=== PATIENT | male | born 1955 | race Caucasian/White ===

== ENCOUNTER 2024-05-14 14:23 | Inpatient (IN) | payer MEDICARE, OTHER ==
[~2024-05-14] VITALS: Ht 175.3 cm; Wt 101.9 kg
[2024-05-14 15:01] LABS: BASOPHILS ABSOLUTE AUTO 0.02 K/mm3 (0.00-0.23); BASOPHILS PERCENT AUTO 0 % (0-2); EOSINOPHILS ABSOLUTE AUTO 0.04 K/mm3 (0.00-0.68); EOSINOPHILS PERCENT AUTO 1 % (0-6); Hematocrit 34.3 % (37.0-53.0); Hemoglobin 12.3 g/dL (13.5-17.5); IMMATURE GRAN ABSOLUTE AUTO 0.02 K/mm3 (0.00-0.10); IMMATURE GRAN PERCENT AUTO 0 % (0-1); LYMPHOCYTES ABSOLUTE AUTO 1.12 K/mm3 (0.84-5.20); LYMPHOCYTES PERCENT AUTO 20 % (21-46); MONOCYTES ABSOLUTE AUTO 0.54 K/mm3 (0.16-1.47); MONOCYTES PERCENT AUTO 10 % (4-13); Mean Corpuscular HGB 31.7 pg (26.0-34.0); Mean Corpuscular HGB Conc 35.9 g/dL (31.5-36.5); Mean Corpuscular Volume 88 fL (80-100); Mean Platelet Volume 11.9 fL (9.1-12.4); NEUTROPHILS ABSOLUTE AUTO 3.84 K/mm3 (1.96-9.15); NEUTROPHILS PERCENT AUTO 69 % (41-73); Platelet Count 133 K/mm3 (150-400); RDW Coefficient Variation 12.5 % (11.7-14.2); RDW Standard Deviation 40.6 fL (35.1-46.3); Red Blood Cell Count 3.88 M/mm3 (4.30-5.90); White Blood Cell Count 5.58 K/mm3 (4.00-11.30)
[2024-05-14 15:20] LABS: Albumin, Blood 4.2 g/dL (3.4-5.0); Albumin/Globulin Ratio 1.1 (0.8-1.8); Bilirubin, Total 0.8 mg/dL (0.1-1.0); Bun/Creatinine Ratio 13.2 (12.0-20.0); Calcium, Blood 9.8 mg/dL (8.5-10.1); Creatinine, Blood 0.91 mg/dL (0.60-1.20); Globulin, Blood 3.7 g/dL (2.2-4.0); Total Protein, Blood 7.9 g/dL (6.4-8.2)
[2024-05-14] MEDS ORDERED: OLMESARTAN-HCT1 EAC4 PO (16:24)
[2024-05-14] MEDS ORDERED: MONT10T PO (16:24)
[2024-05-14] MEDS ORDERED: METFORMIN HCL500 M3 PO (16:24)
[2024-05-14] MEDS ORDERED: Aspirin 81 MG Chew PO ONE (16:40)
[2024-05-14] MEDS ORDERED: Nitroglycerin 1 INCH/GM PKT TOP ONE (16:40)
[2024-05-14 16:51] LABS: International Normalized Ratio 1.07; Prothrombin Time Results 11.4 Sec (9.7-11.5)
[2024-05-14] MEDS ORDERED: Acetaminophen 325 MG TABLET PO PRN (17:25)
[2024-05-14] MEDS ORDERED: FLU VACC TS2024-25(6MOS UP)/PF 45 MCG/0.5 ML SYRINGE IM ONE (17:25)
[2024-05-14] MEDS ORDERED: Nitroglycerin 0.4 MG SUBL SL PRN (17:30)
[2024-05-14] MEDS ORDERED: Metoprolol Tartrate 25 MG Tab PO SCH (17:33)
[2024-05-14] MEDS ORDERED: Dose Adjust by Pharmacy XX STA (17:48)
[2024-05-14] MEDS ORDERED: Heparin Sodium 5000 Units/ML 1ML MDV IV ONE (17:50)
[2024-05-14] MEDS ORDERED: Heparin Sodium,Porcine/0.5 NS 500 ML IV SCH (18:00)
[2024-05-14 18:26] LABS: Percent Saturation 23.9 % (20.0-50.0)
--- NOTE | 2024-05-14 19:14 | NUR ---
ARRIVAL TO UNIT REPORT RECIEVED FROM ED NURSE AT 1750. PT ARRIVED TO UNIT AT 1800. PT ABLE TO TRANSFER TO PCU BED ON HIS OWN, TOLERATED WELL. PT A/OX4 AND COOPERATIVE. PT ORIENTED TO ROOM AND CALL LIGHT. VSS SINCE ARRIVING TO UNIT. PT NOT ENDORSING CHEST PAIN AT THIS TIME.
[2024-05-14 19:27] VITALS: BP 162/93
[2024-05-14] MEDS ORDERED: Insulin Regular 100 UNIT/ML 10ML Vial SC SCH (21:00)
[2024-05-14] MEDS ORDERED: Docusate Sodium 100 MG Cap PO SCH (21:00)
[2024-05-14] MEDS ORDERED: Montelukast Sodium 10 MG Tab PO SCH (21:00)
[2024-05-14 23:31] VITALS: BP 128/79
[2024-05-15] VITALS (15 sets, daily range): BP systolic 119–159; BP diastolic 76–118
[2024-05-15] MEDS ORDERED: Dose Adjust by Pharmacy XX STA ×2 (01:48→08:55)
[2024-05-15] MEDS ORDERED: [UNRECOGNIZED DRUG - MIXTURE] PO ONE (02:10)
--- NOTE | 2024-05-15 06:06 | NUR ---
SHIFT SUMMARY NEURO: A/OX4, BASELINE NEUROPATHY. CARDIAC: NSTEMI, TROPONINS NOT YET PEAKED. HEPARIN GTT RUNNING. CARDIOLOGY CONSULTED. GI COCKTAIL (- LIDOCAINE) ORDERED FOR INTERMITTENT HEART BURN. PT DECLINES NEED FOR THIS TIME. PT STATES HEADACHE FROM NITRO STILL PRESENT. PULSES PRESENT THROUGHOUT. ECHO ORDERED FOR AM. LUNGS: FINE WHEEZES ON LEFT LOBE, CLEAR RIGHT SIDE. PT STATES RECENT SINUS INFECTION. ON RA. GI/: LOOSE BM (PT STATES BASELINE). USES URINAL TO VOID.
[2024-05-15 07:06] LABS: CHOL/HDL RATIO 5.5; Cholesterol 175 mg/dL (50-200); HDL Cholesterol 32 mg/dL (>39); LDL/HDL RATIO 3.5; Low Density Lipoprotein Chol 111 mg/dL (0-110); Triglycerides 159 mg/dL (30-160); Very Low Density Lipoprot Chol 31 mg/dL (6-32)
[2024-05-15] MEDS ORDERED: Atorvastatin 10 MG Tab PO SCH (09:00)
[2024-05-15] MEDS ORDERED: Atorvastatin 40 MG Tab PO SCH (09:00)
[2024-05-15] MEDS ORDERED: Aspirin 325 MG Tab PO SCH (09:00)
[2024-05-15] MEDS ORDERED: Losartan/HCTZ 50-12.5 TAB PO SCH (09:00)
[2024-05-15] MEDS ORDERED: Midazolam HCl 1MG / ML 2ML Vial ONE (10:13)
[2024-05-15] MEDS ORDERED: FentaNYL Citrate 50 MCG/ML 2 ML Injection ONE (10:13)
[2024-05-15] MEDS ORDERED: Verapamil HCL 2.5 MG/ML 2ML Injection ONE (10:13)
[2024-05-15] MEDS ORDERED: NS 250 ML IV ONE (10:14)
[2024-05-15] MEDS ORDERED: NS 500 ML IV ONE (10:14)
[2024-05-15] MEDS ORDERED: Heparin Sodium 1000 Units/ML 10ML MDV ONE (10:14)
[2024-05-15] MEDS ORDERED: NS 1,000 ML IV ONE (10:14)
[2024-05-15] MEDS ORDERED: Nitroglycerin 2 MG/20 ML BTL ONE (10:14)
--- NOTE | 2024-05-15 10:35 | NUR ---
PATIENT TAKEN TO [employer]IST AT THIS TIME. HEPARIN ON STANDBY, PHARMACY UPDATED.
--- NOTE | 2024-05-15 13:33 | NUR ---
PATIENT BACK TO ROOM AT 1145 FROM [facility]. POST VITALS IN PROGRESS. TR BAND AND ARM BOARD IN PLACE. RIGHT RADIAL SITE WNL, SOFT/NONTENDER WITH NO HEMATOMA. AT BEDSIDE. CARDIOLOGY TO BEDSIDE TO UPDATE PATIENT. ORDERS TO RESTART HEPARIN GTT 4 HOURS POST TR BAND REMOVAL. PATIENT CONTINUES TO DENY PAIN. CALL LIGHT IN REACH, PATIENT EATING LUNCH.
[2024-05-15] MEDS ORDERED: Carvedilol 3.125 MG Tab PO SCH (17:00)
--- NOTE | 2024-05-15 18:08 | NUR ---
SHIFT SUMMARY: PATIENT REMAINS ALERT AND ORIENTED THROUGHOUT SHIFT. TELE CONTINUES TO SHOW SR. RIGHT RADIAL SITE SOFT AND NONTENDER. TR BAND REMOVED AT 1700, ARM BOARD IN PLACE. ORDERS TO RESTART HEPARIN 4 HOURS POST TR BAND REMOVAL. PHARMACY UPDATED. PENDING COBRA TRANSFER. ACHS BLOOD SUGARS. IND TO BATHROOM. DENIES PAINS. ON ROOM AIR.
[2024-05-16 03:53] VITALS: BP 119/94
[2024-05-16] MEDS ORDERED: Dose Adjust by Pharmacy XX STA (04:24)
[2024-05-16 04:48] LABS: Hematocrit 34.1 % (37.0-53.0); Mean Platelet Volume 12.8 fL (9.1-12.4); Platelet Count 123 K/mm3 (150-400)
--- NOTE | 2024-05-16 06:16 | NUR ---
SHIFT SUMMARY PT REMAINS ON HEPARIN. AWAITING BED PLACEMENT AT [facility], OTHER FACILITIED CONTACTED WELL. PT PLACED ON 1LNC DT SLEEP APNEA. NO OTHER CHANGES.
[2024-05-16 07:53] VITALS: BP 119/94
[2024-05-16 07:59] VITALS: BP 120/69
[2024-05-16] MEDS ORDERED: Aspirin 81 MG Chew PO SCH (09:00)
[2024-05-16] MEDS ORDERED: Ezetimibe 10 MG Tab PO SCH (09:00)
--- NOTE | 2024-05-16 10:55 | NUR ---
TRANSFER: PATIENT ALERT AND ORIENTED THIS AM. PLAN FOR COBRA TRANSFER. PATIENT EATING BREAKFAST THIS AM. UP IND TO BATHROOM. RIGHT RADIAL SITE REMAINS SOFT AND NONTENDER. ARM BOARD IN PLACE. LUNGS SOUNDS CLEAR. TELE SHOWING SR WITH HR 60'S. DENIES PAINS. AT BEDSIDE. TRANSFER AT 1012. THIS RN CALLED REPORT TO ROMULO FROM [facility] FOR REPORT. HEPARIN GTT CONTINUES ON TRANSFER.
== END 2024-05-16 10:08 | disposition short-term general hospital (02) | DRG 282 ==
LOC: ER 14:23 → PCU 17:21
PROVIDERS: Emergency Medicine; Student in an Organized Health Care Education/Training Program; ADMIT Internal Medicine
PROC: 4A023N7 Measurement of Cardiac Sampling and Pressure, Left Heart, Percutaneous Approach (ICD-10-PCS; principal; 2024-05-15)
PROC: B2111ZZ Fluoroscopy of Multiple Coronary Arteries using Low Osmolar Contrast (ICD-10-PCS; 2024-05-15)
DX: I21.4 Non-ST elevation (NSTEMI) myocardial infarction (principal); E11.9 Type 2 diabetes mellitus without complications; E78.5 Hyperlipidemia, unspecified; I10 Essential (primary) hypertension; I25.10 Atherosclerotic heart disease of native coronary artery without angina pectoris; D64.9 Anemia, unspecified; M19.90 Unspecified osteoarthritis, unspecified site; R61 Generalized hyperhidrosis; F10.90 Alcohol use, unspecified, uncomplicated; Z88.5 Allergy status to narcotic agent; Z98.890 Other specified postprocedural states; Z79.84 Long term (current) use of oral hypoglycemic drugs; Z79.899 Other long term (current) drug therapy
CPT/HCPCS: 36415; 71046; 76937; 80053; 80061; 82728; 82947; 83036; 83540; 83550; 84443; 84484; 85014; 85018; 85025; 85049; 85347; 85520; 85610; 85730; 93005; 93010; 93306; 93458; 99152; 99153; 99285-25; A9270; C1769; C1894; J1644; J1815; J2250; J3010; J7030; J7040; J7050; Q9967